=== PATIENT | female | born 1940 | race Caucasian/White ===

== ENCOUNTER 2023-09-10 12:19 | Outpatient (CLI) | payer OTHER, SELFPAY ==
--- NOTE | 2023-09-10 12:30 | CRLHL7_ITS ---
For Patients: As a result of the Cures Act, medical imaging exams and procedure reports are released immediately into your electronic medical record. You may view this report before your referring provider. If you have questions, please contact your health care provider. Indication: SECONDARY MALIGNANT NEOPLASM BONE Technique: AP pelvis and two views right hip Comparison: None IMPRESSION: Hypertrophic change to the lateral acetabulum noted bilaterally. Spurring at the iliac crests and greater trochanters along with the ischial tuberosities. 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 Vascular calcifications. No fracture deformity. Subtle areas of decreased density within the femoral neck noted bilaterally which may be due to osteoporosis. Dictated by Azael Schafer MD @ 09/11/2023 9:38:34 AM (Electronically Signed)
== END 2023-09-10 12:20 | disposition home or self-care (01) ==
PROVIDERS: PCP Internal Medicine; Visit Provider Internal Medicine
DX: C79.51 Secondary malignant neoplasm of bone (principal); C50.511 Malignant neoplasm of lower-outer quadrant of right female breast; M51.36 Other intervertebral disc degeneration, lumbar region
CPT/HCPCS: 73502